=== PATIENT | female | born 1955 | race Caucasian/White ===

== ENCOUNTER → 2018-01-12 10:37 | Outpatient (CLI) | payer BC, SELFPAY ==
--- NOTE | 2018-01-12 10:41 | MRI_ITS ---
STUDY: MRI LOWER EXTREMITY RIGHT THIGH WITH AND WITHOUT CONTRAST REASON FOR EXAM: Female, 62 years old. Hematoma. Injury 2 months ago. Swelling with lump TECHNIQUE: Standardized fat and water weighted pulse sequences were obtained in all 3 orthogonal planes, post contrast administration. 18 ml of Dotarem contrast material was administered intravenously for the contrast portion of the examination. COMPARISON: None. FINDINGS: There is 8.7 x 6.7 x 2.3 cm peripherally enhancing fluid collection in the medial subcutaneous tissues corresponding to the palpable abnormality, series 5 and 11 images through . Normal quadriceps, adductor and hamstring muscles. Normal quadriceps extensor mechanism with a normal rectus femoris, vastus medialis, intermedius and lateralis muscles. Normal femur. There is no fracture. MRI/Lower Ext No Joint W/WO Cont IMPRESSION: Subcutaneous fluid collection with Shipley Eli lesion versus hematoma. Electronically Signed: Sawyer Joya MD at 22:57 EDT , Service support ,
[2018-01-12 11:51] LABS: CREATININE FINGERSTICK 0.7 mg/dL (0.55-1.02); EGFR FINGERSTICK > 60.0000 mL/min (>60)
== END ==
PROVIDERS: Family Provider Family Medicine; PCP Family Medicine; Referring Provider Surgery; Visit Provider Surgery
DX: T14.8XXA Other injury of unspecified body region, initial encounter (principal); M79.606 Pain in leg, unspecified; X58.XXXA Exposure to other specified factors, initial encounter; Y93.9 Activity, unspecified; Y92.9 Unspecified place or not applicable; Y99.9 Unspecified external cause status
CPT/HCPCS: 73720

== ENCOUNTER → 2021-08-11 | Outpatient (CLI) | payer BC, SELFPAY ==
--- NOTE | 2021-08-11 08:29 | BI_ITS ---
MAMMOGRAPHY - BILATERAL SCREENING REASON FOR EXAM: Female, 65 years old. Routine annual screening examination. PERTINENT HISTORY: Sister with breast cancer. Aunt with breast cancer. TECHNIQUE: Digital bilateral breast declan (3D mammographic acquisition) in the CC and MLO projections. 2-D mediolateral oblique (MLO) and craniocaudad (CC) views of both breasts were obtained. CAD: Full Field Digital Mammography with Computer Added Detection was performed. COMPARISON: Comparison is made with prior outside examination dated 03/12/2020. FINDINGS: Breast Composition: The breasts are almost entirely fatty. There are no dominant masses or suspicious calcifications. No other significant abnormalities are identified. There has been no significant change since the prior study. BI/SCRN MAMM (CAD)W/DECLAN BILAT IMPRESSION: Stable bilateral screening mammogram. Yearly follow-up mammogram recommended. (A) ASSESSMENT CATEGORY: BIRADS Category 1: Negative. A letter regarding these results will be sent to the patient by the facility within 30 days. Approximately 10% of breast cancers are not detected by mammography. A normal mammogram should not delay biopsy of a clinically suspicious abnormality. [id number] Electronically Signed: Berny Yuan MD at 9:21 EDT ,
== END | disposition home or self-care (01) ==
LOC: OPBI 08:27
PROVIDERS: PCP Family Medicine; Referring Provider Family Medicine; Visit Provider Family Medicine
DX: Z12.31 Encounter for screening mammogram for malignant neoplasm of breast (principal); Z80.3 Family history of malignant neoplasm of breast
CPT/HCPCS: 77063; 77067

== ENCOUNTER → 2021-12-26 | Outpatient (CLI) | payer BC, SELFPAY ==
[2021-12-26 12:16] LABS: Absolute Lymphocyte Count 1.38 X10^3/uL (0.83-4.51); Absolute Neutrophil Count 2.8 X10^3/uL (2.0-7.7); Basophil# 0.03 X10^3/uL; Basophil% 0.6 % (0-1); Eosinophil# 0.19 X10^3/uL; Hematocrit 39.6 % (37-47); Hemoglobin 13.1 g/dL (12.0-15.0); Lymphocyte # 1.38 X10^3/ul (0.83-4.51); Lymphocyte % 28.8 % (19-41); Mean Corp Hgb Conc 33.1 g/dL (32-36); Mean Corpuscular Volume 90.8 fL (81-99); Mean Platelet Vol. 9.6 fl (6.2-12.0); Monocyte# 0.38 X10^3/uL; Monocyte% 7.9 % (0-10); NRBC Flagged by Analyzer 0 % (0-5); Neutrophil # 2.81 X10^3/uL (2.7-7.7); Neutrophil % 58.5 % (47-70); Platelet Count 242 K/mm3 (150-450); RBC Distribution Width CV 12.6 % (11.6-14.6); RBC Distribution Width SD 42.2 fl (35.1-43.9); Red Blood Count 4.36 M/mm3 (4.2-5.4); White Blood Count 4.8 K/mm3 (4.4-11.0)
[2021-12-26 12:52] LABS: ALB/GLOB Ratio 1.1 RATIO (0.9-2.4); AST(SGOT) 17 U/L (15-37); Alanine Aminotransfer ALT/SGPT 32 U/L (13-56); Alkaline Phosphatase 78 U/L (45-117); Anion Gap 7 (5-15); BUN 17 mg/dL (7-18); BUN/Creat Ratio 18.3 RATIO (10-20); Calcium,Total 9.9 mg/dL (8.5-10.1); Chloride 104 mmol/L (98-107); Cholesterol 157 mg/dL (200); Creatinine, Serum 0.93 mg/dL (0.55-1.02); EST Glomerular Filtration Rate 65 mL/min (>60); Est Glom Filt Rate - Afr Amer 78 mL/min (>60); Globulin 3.5 g/dL (2.2-4.2); Glucose 105 mg/dL (74-106); High Density Lipoprotein 86 mg/dL; Protein, Total 7.5 g/dL (6.4-8.2); Sodium Level 140 mmol/L (136-145); Triglycerides 144 mg/dL; Very Low Density Lipoprotein 29 mg/dL (5-40)
[2022-01-04 14:07] LABS: Age Gdln ACOG Testing 30-65 (.)
[2022-01-05 08:59] LABS: HPV APTIMA, High Risk Negative (Negative); HPV Reflexed? YES, CHARGE PATIENT
== END | disposition home or self-care (01) ==
PROVIDERS: PCP Family Medicine; Referring Provider Family Medicine; Visit Provider Family Medicine
DX: Z00.00 Encounter for general adult medical examination without abnormal findings (principal); I10 Essential (primary) hypertension; E78.5 Hyperlipidemia, unspecified; Z12.4 Encounter for screening for malignant neoplasm of cervix
CPT/HCPCS: 36415; 80053; 80061; 85025; 87624; 88175; G0145

== ENCOUNTER → 2023-01-25 | Outpatient (CLI) | payer MEDICARE, SELFPAY ==
--- NOTE | 2023-01-25 12:04 | BI_ITS ---
MAMMOGRAPHY - BILATERAL SCREENING 3-D TOMOSYNTHESIS REASON FOR EXAM: Female, 67 years old. SCREENING PERTINENT HISTORY: No significant family history. TECHNIQUE: 2-D mammograms and 3-D Tomosynthesis of the breast (s) were performed. CAD was performed. COMPARISON: 08/11/2021 FINDINGS: The breast composition is composed of scattered fibroglandular density. Scattered benign calcifications are seen. No dense spiculated masses or suspicious microcalcifications are identified. No architectural distortion is identified. There is no skin thickening or retraction. There has been no significant change since the prior study. BI/SCRN MAMM (CAD)W/DECLAN BILAT IMPRESSION: No mammographic signs of malignancy. Routine yearly mammograms recommended. ASSESSMENT CATEGORY: BIRADS Category 1: Negative. A letter regarding these results will be sent to the patient by the facility within 30 days. FOLLOW UP RECOMMENDATION: Yearly follow up mammogram recommended. (A) Approximately 10% of breast cancers are not detected by mammography. A normal mammogram should not delay biopsy of a clinically suspicious abnormality. Electronically Signed: Phong Belcher MD at 13:56 EDT ,
== END | disposition home or self-care (01) ==
LOC: OPBI 12:02
PROVIDERS: PCP Family Medicine; Visit Provider Family Medicine
DX: Z12.31 Encounter for screening mammogram for malignant neoplasm of breast (principal)
CPT/HCPCS: 77063; 77067

== ENCOUNTER → 2023-02-03 | Outpatient (CLI) | payer MEDICARE, SELFPAY ==
[2023-02-03 13:06] LABS: Absolute Lymphocyte Count 1.67 X10^3/uL (0.83-4.51); Absolute Neutrophil Count 2.1 X10^3/uL (2.0-7.7); Basophil# 0.03 X10^3/uL; Basophil% 0.7 % (0-1); Eosinophil# 0.22 X10^3/uL; Eosinophils% 5.1 % (0-5); Hematocrit 41.7 % (37-47); Hemoglobin 13.4 g/dL (12.0-15.0); Lymphocyte # 1.67 X10^3/ul (0.83-4.51); Lymphocyte % 38.7 % (19-41); Mean Corp Hgb Conc 32.1 g/dL (32-36); Mean Corpuscular Hgb 29.7 pg (27.0-32.0); Mean Corpuscular Volume 92.5 fL (81-99); Mean Platelet Vol. 9.8 fl (6.2-12.0); Monocyte# 0.32 X10^3/uL; Monocyte% 7.4 % (0-10); NRBC Flagged by Analyzer 0 % (0-5); Neutrophil # 2.07 X10^3/uL (2.7-7.7); Neutrophil % 47.9 % (47-70); Platelet Count 248 K/mm3 (150-450); RBC Distribution Width CV 12.4 % (11.6-14.6); RBC Distribution Width SD 42.3 fl (35.1-43.9); Red Blood Count 4.51 M/mm3 (4.2-5.4); White Blood Count 4.3 K/mm3 (4.4-11.0)
[2023-02-03 13:21] LABS: ALB/GLOB Ratio 1.1 RATIO (0.9-2.4); AST(SGOT) 19 U/L (15-37); Alanine Aminotransfer ALT/SGPT 30 U/L (13-56); Albumin, Serum 3.8 g/dL (3.2-5.0); Alkaline Phosphatase 85 U/L (45-117); Anion Gap 4 (5-15); BUN 19 mg/dL (7-18); BUN/Creat Ratio 20.2 RATIO (10-20); Calcium,Total 9.6 mg/dL (8.5-10.1); Chloride 104 mmol/L (98-107); Cholesterol 167 mg/dL (200); Creatinine, Serum 0.94 mg/dL (0.55-1.02); EST Glomerular Filtration Rate 63 mL/min (>60); Est Glom Filt Rate - Afr Amer 76 mL/min (>60); Globulin 3.5 g/dL (2.2-4.2); Glucose 108 mg/dL (74-106); High Density Lipoprotein 67 mg/dL; Potassium 4.6 mmol/L (3.5-5.1); Protein, Total 7.3 g/dL (6.4-8.2); Sodium Level 139 mmol/L (136-145); Triglycerides 197 mg/dL; Very Low Density Lipoprotein 39 mg/dL (5-40)
== END | disposition home or self-care (01) ==
LOC: BFHLAB 09:15
PROVIDERS: PCP Family Medicine; Visit Provider Family Medicine
DX: Z00.00 Encounter for general adult medical examination without abnormal findings (principal); I10 Essential (primary) hypertension; E78.5 Hyperlipidemia, unspecified
CPT/HCPCS: 36415; 80053; 80061; 85025

== ENCOUNTER → 2024-02-04 | Outpatient (CLI) | payer MEDICARE, SELFPAY ==
[2024-02-04 12:32] LABS: Absolute Lymphocyte Count 1.66 X10^3/uL (0.83-4.51); Absolute Neutrophil Count 2.4 X10^3/uL (2.0-7.7); Basophil# 0.04 X10^3/uL; Basophil% 0.9 % (0-1); Eosinophil# 0.26 X10^3/uL; Eosinophils% 5.6 % (0-5); Hematocrit 40.2 % (37-47); Hemoglobin 13.2 g/dL (12.0-15.0); Lymphocyte # 1.66 X10^3/ul (0.83-4.51); Lymphocyte % 35.5 % (19-41); Mean Corp Hgb Conc 32.8 g/dL (32-36); Mean Corpuscular Volume 91.4 fL (81-99); Mean Platelet Vol. 10.2 fl (6.2-12.0); Monocyte# 0.32 X10^3/uL; Monocyte% 6.8 % (0-10); NRBC Flagged by Analyzer 0 % (0-5); Neutrophil # 2.39 X10^3/uL (2.7-7.7); Platelet Count 254 K/mm3 (150-450); RBC Distribution Width CV 12.6 % (11.6-14.6); RBC Distribution Width SD 41.5 fl (35.1-43.9); White Blood Count 4.7 K/mm3 (4.4-11.0)
[2024-02-04 13:14] LABS: Vitamin D,25 Hydroxy 40.9 ng/mL
[2024-02-04 13:45] LABS: ALB/GLOB Ratio 1.3 RATIO (0.9-2.4); AST(SGOT) 17 U/L (15-37); Alanine Aminotransfer ALT/SGPT 26 U/L (13-56); Albumin, Serum 4.1 g/dL (3.2-5.0); Alkaline Phosphatase 78 U/L (45-117); Anion Gap 7 (5-15); BUN 21 mg/dL (7-18); BUN/Creat Ratio 26.8 RATIO (10-20); Calcium,Total 9.9 mg/dL (8.5-10.1); Chloride 104 mmol/L (98-107); Cholesterol 159 mg/dL (200); Creatinine, Serum 0.78 mg/dL (0.55-1.02); EST Glomerular Filtration Rate 78 mL/min (>60); Est Glom Filt Rate - Afr Amer 94 mL/min (>60); Globulin 3.1 g/dL (2.2-4.2); Glucose 92 mg/dL (74-106); High Density Lipoprotein 67 mg/dL; Potassium 4.1 mmol/L (3.5-5.1); Protein, Total 7.2 g/dL (6.4-8.2); Sodium Level 139 mmol/L (136-145); Triglycerides 116 mg/dL; Very Low Density Lipoprotein 23 mg/dL (5-40)
== END | disposition home or self-care (01) ==
LOC: BFHLAB 10:42
PROVIDERS: PCP Family Medicine; Referring Provider Family Medicine; Visit Provider Family Medicine
DX: Z00.00 Encounter for general adult medical examination without abnormal findings (principal); I10 Essential (primary) hypertension; E78.5 Hyperlipidemia, unspecified; E55.9 Vitamin D deficiency, unspecified
CPT/HCPCS: 36415; 80053; 80061; 82306; 84439; 84443; 85025

== ENCOUNTER → 2024-02-25 | Outpatient (CLI) | payer MEDICARE, SELFPAY | END | disposition home or self-care (01) | LOC: OPBI 07:11 | PROVIDERS: PCP Family Medicine; Referring Provider Family Medicine; Visit Provider Family Medicine | DX: Z12.31 Encounter for screening mammogram for malignant neoplasm of breast (principal) | CPT/HCPCS: 77063; 77067 ==

== ENCOUNTER → 2025-02-06 | Outpatient (CLI) | payer MEDICARE, SELFPAY ==
[2025-02-06 13:09] LABS: AST(SGOT) 27 U/L (<=31); Alanine Aminotransfer ALT/SGPT 29 U/L (<=34); Albumin, Serum 4.5 g/dL (3.4-4.8); Alkaline Phosphatase 90 U/L (35-104); Anion Gap 9 (5-15); BUN 17 mg/dL (4-19); BUN/Creat Ratio 20.9 RATIO (10-20); Calcium,Total 10.4 mg/dL (7.6-11.0); Carbon Dioxide 29.6 mmol/L (21.0-32.0); Chloride 102 mmol/L (98-108); Cholesterol 150 mg/dL (<=200); Globulin 2.8 g/dL (2.2-4.2); Glucose 97 mg/dL (70-99); Low Density Lipoprotein Calc. 44 mg/dL; Potassium 4.1 mmol/L (3.3-5.1); Triglycerides 118 mg/dL; Very Low Density Lipoprotein 24 mg/dL (5-40); cholesterol:hdl ratio screen 1.75
[2025-02-06 15:18] LABS: Hematocrit 41.2 % (37-47); Hemoglobin 13.4 g/dL (12.0-15.0); Immature Granulocytes Count 0.010 X10^3/uL (0.0-0.0); Mean Corp Hgb Conc 32.5 g/dL (32-36); Mean Corpuscular Volume 92.0 fL (81-99); Mean Platelet Vol. 10.0 fl (6.2-12.0); NRBC Flagged by Analyzer 0 % (0-5); Platelet Count 237 K/mm3 (150-450); RBC Distribution Width CV 13.0 % (11.6-14.6); RBC Distribution Width SD 44.2 fl (35.1-43.9); Red Blood Count 4.48 M/mm3 (4.2-5.4); White Blood Count 5.3 K/mm3 (4.4-11.0)
== END | disposition home or self-care (01) ==
LOC: MTLAB 10:59
PROVIDERS: PCP Family Medicine; Referring Provider Family Medicine; Visit Provider Family Medicine
DX: Z00.00 Encounter for general adult medical examination without abnormal findings (principal); I10 Essential (primary) hypertension; E78.5 Hyperlipidemia, unspecified
CPT/HCPCS: 36415; 80053; 80061; 85025

== ENCOUNTER → 2025-02-26 | Outpatient (CLI) | payer MEDICARE, SELFPAY ==
--- NOTE | 2025-02-26 08:43 | BI_ITS ---
EXAM: SCRN MAMM (CAD)W/DECLAN BILAT DATE: 02/26/2025 CLINICAL HISTORY: F, Age 69 y/o , SCREENING Patient's sister was diagnosed with breast cancer. TECHNIQUE: Procedure Code: [id number] Modality: MG Procedure: SCRN MAMM (CAD)W/DECLAN BILAT COMPARISON: Prior exam(s) dated 02/25/2024, 01/25/2023, and 08/11/2021. FINDINGS: TISSUE DENSITY: There are scattered areas of fibroglandular density. Bilateral Breast Mammographic Findings: No significant masses, calcifications or other abnormalities are identified. Benign-appearing round macrocalcifications and microcalcifications are seen in both breasts. BI/SCRN MAMM (CAD)W/DECLAN BILAT IMPRESSION: Benign screening mammogram. OVERALL FINAL ASSESSMENT BI-RADS 2: BENIGN RECOMMENDATION: Routine annual follow-up in 1 Year Additional Recommendation none A letter with findings and recommendations will be mailed to the patient. Reading Location: [id number]
--- OUTSIDE RECORDS SUMMARY | 2025-02-26 09:22 | XMS RPT_ITS | CCD ---
Author Organization [facility] Care Team Providers Care Tooling Manager Name Role Phone Mariaelena Bowen Primary Care Provider [phone] Kitty Kwan Unavailable Unavailable Mariaelena Bowen MD Primary Care Provider Leeroy Owusu Unavailable Unavailable Self, Referral Referring Unavailable Aquiles, Dr. Kitty Hernandez Attending Unavaila ble UNKNOWN, UNKNOWN Referring Unavailable LEEROY OWUSU Attending Unavailable Dr. Kitty Kwan Referring Unavaila LEEROY Smith Attending Unavailable LAUREEN DOBBS Attending Unavailable LEEROY OWUSU Referring Unavailable Mariaelena Bowen MD Primary Care Provider MARIAELENA BOWEN Primary Care Unavailable ML SAAVEDRA Referring UnavailML Joseph Attending UnavailMariaelena Roy Primary Care Unavailable Mariaelena Bowen Referring Unavailable Mariaelena Bowen Attending Unavailable Mariaelena Bowen Referring Unavailable Mariaelena Bowen Attending Unavailable Mariaelena Bowen Primary Care Unavailable Allergies Allergy Classification Reported Allergen(s) Allergy Type Date of Onset Reaction(s) Facility (1 source) No Alert Propensity to adverse reactions to drug 3 [facility] Medications Current Medications Medication Drug Class(es) Dates Sig (Normalized) Sig (Original) DAILY MULTIVITAMIN TAB (5 sources) Start: 04-21-2005 DAILY MULTIVITAMIN TAB Take one(1) tablet daily. 0 04/21/2005 Active Comment on above: Take one(1) tablet d aily. evening primrose oil 500 mg oral capsule (10 sources) Start: 02-19-2015 Evening Ireland Oil 500 mg cap Take by mouth. 0 02/19/2015 Active Comment on above: Take by mouth. hydroCHLOROthiazide 12.5 mg / lisinopril 20 mg oral tablet (8 sources) Thiazide Diuretic, Angiotensin Converting Enzyme Inhibitor Start: 12-13-19 20 take 1 tablet by mouth once daily in the morning lisinopril-hyd rochlorothiazi de (PRINZIDE,ZEST ORETIC) 20-12.5 mg per tablet Take 1 tablet by mouth every morning. 90 tablet 3 12/13/2019 Active Start: 01-07-2018 take 1 tablet by doug th once daily Lisinopril-Hydrochlorothiazide Active 1 TABLET PO DAILY January 07, 2018 12:00am Comment on above: Take 1 tablet by doug th every morning. lisinopril 20 mg oral tablet (2 sources) Angiotensin Converting Enzyme Inhibitor Start: 5 take 1 tablet by mouth once daily lisinopril (ZESTRIL) 20 mg tablet Take 20 mg by mouth once daily. 09/30/2024 Active multivitamin capsule (3 sources) Start: 8 take 1 capsule by mouth once daily multivitamin capsule Active 1 CAP PO DAILY January 07, 2018 1:58pm Start: 01-07-2018 take 1 capsule by mo uth once daily multivitamin capsule Active 1 CAP PO DAILY January 07, 2018 12:00am Propylene glycol (2 sources) propylene glycol (SYSTANE COMPLETE OPHTHALMIC) Use in eyes. Active rosuvastatin calcium 20 mg oral tablet (5 sources) HMG-CoA Reductase Inhibitor Start: 5 take 1 tablet by mouth once daily rosuvastatin (CRESTOR) 20 mg tablet Take 20 mg by mouth once daily. 09/02/2024 Active Start: 12-13-2019 End: 10-26-2022 take 1 tablet by mouth once daily rosuvastatin (CRESTOR) 20 mg tablet Take 1 tablet by mouth once daily. 90 tablet 3 12/13/2019 10/26/2022 Discontinued (Discontinued by another Health Care Provider) Comment on above: Take 1 tablet by doug th once daily. simvastatin 40 mg oral tablet (8 sources) HMG-CoA Reductase Inhibitor Start: 01-07-2018 simvastatin (ZOCOR) 40 mg tablet Take by mouth. 01/07/2018 Active Comment on above: Take by mouth. Completed/Discontinued Medications Medication Drug Class(es) Dates Sig (Normalized) Sig (Original) phenylephrine hydrochloride 25 mg/ml ophthalmic solution (2 sources) alpha-1 Adrenergic Agonist Start: 11-20-2024 End: 11-20-2024 PHENYLephrine 2.5 % 1 drop (AK-DILATE, ALYSHA-SYNEPHRINE) Start: 11-20-2024 End: 11-20-2024 1 drop, BOTH EYES, ONCE, 1 d ose, On Wed11/20/24 at 1430, FOR OPHTHALMIC USE ONLY PROTECT FROM LIGHT ersidunwQYNT-tiosfhva-rygwcl n 1-0.5-0.075 % drps (2 sources) prednisoLONE-mox iflox-bromfen 1-0.5-0.075 % drps Use 1 Drop in eyes twice daily. 0 Active Comment on above: Use 1 Drop in eyes t wice daily. proparacaine hydrochloride 5 mg/ml ophthalmic solution (2 sources) Local Anesthetic Star t: 11-10 End: 11-10 proparacaine 0.5 % 1 drop (ALCAINE) Start: 11-20-2024 End: 11-20-2024 1 drop, BOTH EYES, ONCE, 1 d ose, On Wed11/20/24 at 1430, FOR THE EYE tropicamide 10 mg/ml ophthalmic solution (3 sources) Anticholinergic Start: 11-20-2024 End: 11-20-2024 tropicamide 1 % 1 drop (MYDRIACYL) Start: 11-20-2024 End: 11-20-2024 1 drop, BOTH EYES, ONCE, 1 d ose, On Wed11/20/24 at 1430, FOR THE EYE Start: 12-09-2021 End: 12-09-2021 tropicamide 0.5 % 1 Drop (MY DRIACYL) Problems Active Problems Problem Classification Problem Date Documented Da te Episodic/Chronic Blindness and vision defects (7 sources) Bilateral hyperopia of eyes; Translations: [Hypermetropia, bilateral] Onset: 11-20-2024 Episodic Disorders of lipid metabolism (5 sources) Hyperlipidemia; Translations: [Hyperlipidemia, unspecified] Onset: 12-24-2015 12-24-2015 Chronic Essential hypertension (5 sources) Benign essential hypertension; Translations: [Essential (primary) hypertension] 04-20-2005 Chronic Heart valve disorders (15 sources) Aortic valve calcification; Translations: [Nonrheumatic aortic valve disorder, unspecified] Onset: 01-31-2013 01-31-2013 Chronic Neoplasms of unspecified nature or uncertain behavior (5 sources) Neoplasm of uncertain behavior of skin Onset: 06-10-2022 Episodic Nonmalignant breast conditions (5 sources) Fibrocystic disease of breast; Translations: [Diffuse cystic mastopathy of unspecified breast] Onset: 04-21-2005 04-21-2005 Chronic Other aftercare (2 sources) Encounter for removal of sutures Onset: 11-05-2022 Episodic Other eye disorders (1 source) Vitreous floaters of right eye; Translations: [Other vitreous opacities, right eye] 10-26-2022 Chronic Other eye disorders (1 source) Posterior vitreous detachment of right eye; Translations: [Vitreous degeneration, right eye] 11-20-2024 Chronic Other eye disorders (1 source) Bilateral vitreous floaters; Translations: [Other vitreous opacities, bilateral] 11-20-2024 Chronic Other eye disorders (1 source) Vitreous degeneration, right eye; Translations: [Posterior vitreous detachment of right eye] Onset: 11-20-2024 Chronic Other eye disorders (1 source) Other vitreous opacities, bilateral; Translations: [Floaters, bilateral] Onset: 11-20-2024 Chronic Other eye disorders (2 sources) H/O: R cataract extraction; Translations: [Cataract extraction status, right eye] Episodic Other eye disorders (2 sources) H/O: L cataract extraction; Translations: [Cataract extraction status, left eye] Episodic Other eye disorders (1 source) Dry eyes; Translations: [Dry eye syndrome of bilateral lacrimal glands] 11-20-2024 Episodic Other eye disorders (1 source) Dry eye syndrome of bilateral lacrimal glands; Translations: [Dry eyes, bilateral] Onset: 11-20-2024 Episodic Other injuries and conditions due to external causes (3 sources) Hematoma; Translations: [Other injury of unspecified body region, initial encounter] 01-07-2018 Episodic Other skin disorders (4 sources) Other seborrheic keratosis Onset: 06-10-2022 Episodic Retinal detachments; defects; vascular occlusion; and retinopathy (1 source) Multiple defects of retina of left eye without detachment; Translations: [Multiple defects of retina without detachment, left eye] Episodic Past or Other Problems Problem Classification Problem Date Documented Date Episodic/Chronic Cataract (6 sources) Bilateral senile combined form cataracts of eyes; Translations: [Combined forms of age-related cataract, bilateral] Onset: 09-19-2018 Resolved: 04-26-2023 Chronic Gastritis and duodenitis (2 sources) NSAID-associated gastropathy; Translations: [Other gastritis without bleeding] Onset: 02-11-2016 Resolved: 06-23-2017 06-23-2017 Episodic Menstrual disorders (2 sources) Disorder of female genital organs; Translations: [Irregular menstruation, unspecified] Onset: 06-29-2006 Resolved: 02-20-2014 02-20-2014 Chronic Mycoses (5 sources) Onychomycosis due to dermatophyte ; Translations: [Tinea unguium] Onset: 02-19-2015 02-19-2015 Episodic Other injuries and conditions due to external causes (5 sources) Degloving injury; Translations: [Other injury of unspecified body region, initial encounter] Onset: 02-09-2019 02-09-2019 Episodic Other nervous system disorders (2 sources) Carpal tunnel syndrome; Translations: [Carpal tunnel syndrome, unspecified upper limb] Onset: 02-15-2007 Resolved: 02-20-2014 02-20-2014 Chronic Other non-traumatic joint disorders (2 sources) Shoulder joint pain; Translations: [Pain in unspecified shoulder] Onset: 05-07-2007 Resolved: 02-20-2014 02-20-2014 Episodic Other screening for suspected conditions (not mental disorders or infectious disease) (1 source) Encounter for screening mammogram for malignant neoplasm of breast; Translations: [Encounter for screening mammogram for malignant neoplasm of breast] Onset: 03-13-2024 Episodic Spondylosis; intervertebral disc disorders; other back problems (2 sources) Displacement of lumbar intervertebral disc without myelopathy; Translations: [Other intervertebral disc displacement, lumbar region] Onset: 02-06-2011 Resolved: 02-20-2014 02-20-2014 Chronic Spondylosis; intervertebral disc disorders; other back problems (2 sources) Lumbar disc prolapse with radiculopathy; Translations: [Intervertebral disc disorders with radiculopathy, lumbar region] Onset: 01-14-2011 Resolved: 02-20-2014 02-20-2014 Episodic Results Test Name Value Interpretation Reference Range Facility CBC W/Diff, Automatedon 01-11 Absolute Lymph 1.39 X10 3/uL Normal 0.83-4.51 [facility] Comment on above: Performed By: #### L 500.4050, L100.0100, L500.4100 #### [facility] [address] [place], [address] Absolute Neut 3.3 X10 3/uL Normal 2.0-7.7 [facility] Comment on above: Performed By: #### L 500.4050, L100.0100, L500.4100 #### [facility] [address] [place], [address] Basophils/100 WBC (Bld) 0.8 % Normal 0-1 [facility] Comment on above: Performed By: #### L 500.4050, L100.0100, L500.4100 #### [facility] [address] [place], [address] Eosinophils/100 WBC (Bld) 4.2 % Normal 0-5 [facility] Comment on above: Performed By: #### L 500.4050, L100.0100, L500.4100 #### [facility] [address] [place], [address] Erythrocyte distribution width (RBC) [Ratio] 13.0 % Normal 11.6-14.6 [facility] Comment on above: Performed By: #### L 500.4050, L100.0100, L500.4100 #### [facility] [address] [place], [address] Hematocrit (Bld) [Volume fraction] 41.2 % Normal 37-47 [facility] Comment on above: Performed By: #### L 500.4050, L100.0100, L500.4100 #### [facility] [address] [place], [address] Hemoglobin (Bld) [Mass/Vol] 13.4 g/dL Normal 12.0-15.0 [facility] Comment on above: Performed By: #### L 500.4050, L100.0100, L500.4100 #### [facility] [address] [place], [address] IG% 0.200 Normal 0.0-0.9 [facility] Comment on above: Result Comment: IG% - Immature Granulocytes (promyelocytes, myelocytes and metamyelocytes) > 1% indicates that a LEFT SHIFT is Present. Performed By: #### L 500.4050, L100.0100, L500.4100 #### [facility] [address] [place], [address] Lymphocytes/100 WBC (Bld) 26.3 % Normal 19-41 [facility] Comment on above: Performed By: #### L 500.4050, L100.0100, L500.4100 #### [facility] [address] [place], [address] MCH (RBC) [Entitic mass] 29.9 pg Normal 27.0-32.0 [facility] Comment on above: Performed By: #### L 500.4050, L100.0100, L500.4100 #### [facility] [address] [place], [address] MCHC (RBC) [Mass/Vol] 32.5 g/dL Normal 32-36 [facility] Comment on above: Performed By: #### L 500.4050, L100.0100, L500.4100 #### [facility] [address] [place], [address] MCV (RBC) [Entitic vol] 92.0 fL Normal 81-99 [facility] Comment on above: Performed By: #### L 500.4050, L100.0100, L500.4100 #### [facility] [address] [place], [address] Monocytes/100 WBC (Bld) 7.0 % Normal 0-10 [facility] Comment on above: Performed By: #### L 500.4050, L100.0100, L500.4100 #### [facility] [address] [place], [address] Neutrophils/100 WBC (Bld) 61.5 % Normal 47-70 [facility] Comment on above: Performed By: #### L 500.4050, L100.0100, L500.4100 #### [facility] [address] [place], [address] Nucleated RBC (Bld) [#/Vol] 0 10*3/uL Normal 0-5 [facility] Comment on above: Performed By: #### L 500.4050, L100.0100, L500.4100 #### [facility] [address] [place], [address] Platelet mean volume (Bld) [Entitic vol] 10.0 fL Normal 6.2-12.0 [facility] Comment on above: Performed By: #### L 500.4050, L100.0100, L500.4100 #### [facility] [address] [place], [address] Platelets (Bld) [#/Vol] 237 10*3/uL Normal 150-450 [facility] Comment on above: Performed By: #### L 500.4050, L100.0100, L500.4100 #### [facility] [address] [place], [address] RBC (Bld) [#/Vol] 4.48 10*6/uL Normal 4.2-5.4 [facility] Comment on above: Performed By: #### L 500.4050, L100.0100, L500.4100 #### [facility] [address] [place], [address] RDW SD 44.2 fl High 35.1-43.9 [facility] Comment on above: Performed By: #### L 500.4050, L100.0100, L500.4100 #### [facility] [address] [place], [address] WBC (Bld) [#/Vol] 5.3 10*3/uL Normal 4.4-11.0 [facility] Comment on above: Performed By: #### L 500.4050, L100.0100, L500.4100 #### [facility] [address] [place], [address] Comprehensive Metabolic Prof ilon 02-06-2025 Albumin [Mass/Vol] 4.5 g/dL Normal 3.4-4.8 [facility] Comment on above: Performed By: #### L 500.4050, L100.0100, L500.4100 #### [facility] [address] [place], [address] Albumin/Globulin [Mass ratio] 1.6 {ratio} Normal 0.9-2.4 [facility] Comment on above: Performed By: #### L 500.4050, L100.0100, L500.4100 #### [facility] [address] [place], [address] ALK PHOS 90 U/L Normal 35-104 [facility] Comment on above: Performed By: #### L 500.4050, L100.0100, L500.4100 #### [facility] [address] [place], [address] ALT [Catalytic activity/Vol] 29 U/L Normal <=34 [facility] Comment on above: Performed By: #### L 500.4050, L100.0100, L500.4100 #### [facility] [address] [place], [address] AST [Catalytic activity/Vol] 27 U/L Normal <=31 [facility] Comment on above: Performed By: #### L 500.4050, L100.0100, L500.4100 #### [facility] [address] [place], [address] Bilirubin [Mass/Vol] 0.50 mg/dL Normal 0.00-1.30 [facility] Comment on above: Performed By: #### L 500.4050, L100.0100, L500.4100 #### [facility] [address] [place], [address] BUN/CRE 20.9 RATIO High 10-20 [facility] Comment on above: Performed By: #### L 500.4050, L100.0100, L500.4100 #### [facility] [address] [place], [address] Calcium [Mass/Vol] 10.4 mg/dL Normal 7.6-11.0 [facility] Comment on above: Performed By: #### L 500.4050, L100.0100, L500.4100 #### [facility] [address] [place], [address] Chloride [Moles/Vol] 102 mmol/L Normal 98-108 [facility] Comment on above: Performed By: #### L 500.4050, L100.0100, L500.4100 #### [facility] [address] [place], [address] CO2 [Moles/Vol] 29.6 mmol/L Normal 21.0-32.0 [facility] Comment on above: Performed By: #### L 500.4050, L100.0100, L500.4100 #### [facility] [address] [place], [address] Creatinine [Mass/Vol] 0.79 mg/dL Normal 0.70-1.20 [facility] Comment on above: Performed By: #### L 500.4050, L100.0100, L500.4100 #### [facility] [address] [place], [address] GAP 9 Normal 5-15 [facility] Comment on above: Performed By: #### L 500.4050, L100.0100, L500.4100 #### [facility] [address] [place], [address] GFR/1.73 sq M.predicted among non-blacks MDRD (S/P/Bld) [Vol rate/Area] 81 mL/min/{1.73_m2} Normal >60 [facility] Comment on above: Result Comment: mL/m in/1.73m2 CKD-EPI Creatinine Equation (2020) Performed By: #### L 500.4050, L100.0100, L500.4100 #### [facility] [address] [place], [address] Globulin (S) [Mass/Vol] 2.8 g/dL Normal 2.2-4.2 [facility] Comment on above: Performed By: #### L 500.4050, L100.0100, L500.4100 #### [facility] [address] [place], [address] Glucose [Mass/Vol] 97 mg/dL Normal 70-99 [facility] Comment on above: Performed By: #### L 500.4050, L100.0100, L500.4100 #### [facility] [address] [place], [address] Potassium [Moles/Vol] 4.1 mmol/L Normal 3.3-5.1 [facility] Comment on above: Performed By: #### L 500.4050, L100.0100, L500.4100 #### [facility] [address] [place], [address] Sodium [Moles/Vol] 141 mmol/L Normal 133-145 [facility] Comment on above: Performed By: #### L 500.4050, L100.0100, L500.4100 #### [facility] [address] [place], [address] T PROT 7.3 g/dL Normal 5.9-8.4 [facility] Comment on above: Performed By: #### L 500.4050, L100.0100, L500.4100 #### [facility] [address] [place], [address] Urea nitrogen [Mass/Vol] 17 mg/dL Normal 4-19 [facility] Comment on above: Performed By: #### L 500.4050, L100.0100, L500.4100 #### [facility] [address] [place], [address] Lipid Profileon 02-06-2025 CHOL:HDL 1.75 Normal [facility] Comment on above: Performed By: #### L 500.4050, L100.0100, L500.4100 #### [facility] [address] [place], [address] Cholesterol [Mass/Vol] 150 mg/dL Normal <=200 [facility] Comment on above: Result Comment: Chol esterol level, Desirable <200 mg/dL Borderline high cholesterol 200-239 mg/dL High cholesterol >=240 mg/dL Recommendations of the NCEP Adult Treatment Panel for the following risk-cutoff thresholds for the [place] population. Performed By: #### L 500.4050, L100.0100, L500.4100 #### [facility] [address] [place], [address] Cholesterol in HDL [Mass/Vol] 86 mg/dL Normal [facility] Comment on above: Result Comment: Janet onal Cholesterol Education Program (NCEP) guidelines: <40 mg/dL: Low HDL-cholesterol (major risk factor for CHD) >= 60 mg/dL: High HDL-cholesterol (negative risk factor for CHD) HDL-cholesterol is affected by a number of factors, e.g. smoking, exercise, hormones, sex and age. Performed By: #### L 500.4050, L100.0100, L500.4100 #### [facility] [address] [place], [address] Cholesterol in LDL [Mass/Vol] 44 mg/dL Normal [facility] Comment on above: Result Comment: Bord zxjcyk=235-075 mg/dL Higher Knlw=637 mg/dL or greater Mello Equation 2020 for LDL-C Performed By: #### L 500.4050, L100.0100, L500.4100 #### [facility] [address] [place], [address] Cholesterol in VLDL [Mass/Vol] 24 mg/dL Normal 5-40 [facility] Comment on above: Performed By: #### L 500.4050, L100.0100, L500.4100 #### [facility] [address] [place], [address] Triglyceride [Mass/Vol] 118 mg/dL Normal [facility] Comment on above: Result Comment: The drugs N-Acetylcysteine and Metamizole may falsely depress this assay. Normal range: <150 mg/dL Borderline High: 150-199 mg/dL High: 200-499 mg/dL Very High: >500 mg/dL Performed By: #### L 500.4050, L100.0100, L500.4100 #### [facility] [address] [place], [address] CNPMadelyn 11-20-2024 BRIAN Telephone (OPTLOU) ---- MARLO WINN ([id number]) 1955 F Date Time Provider Department 11/20/24 ML SAAVEDRA OPTLOU During your visit today, we recorded the following information about you: Mary Schumacher 11/20/2024 3:32 PM Signed PT left before being scheduled so I scheduled her next year, same time, same provider and left a vm indicating if there is a problem she can call in to r/s. Allergies As of Date: 11/20/2024 (No Known Allergies) Date Reviewed: 11/20/2024 Reviewed by: Ml Saavedra, OD - Fully Assessed Reason for Visit: Appointment [[id number]] Prescriptions as of 11/20/2024 - lisinopril (ZESTRIL) 20 mg tablet Take 20 mg by mouth once daily. - rosuvastatin (CRESTOR) 20 mg tablet Take 20 mg by mouth once daily. - propylene glycol (SYSTANE COMPLETE OPHTHALMIC) Use in eyes. - simvastatin (ZOCOR) 40 mg tablet Take by mouth. - lisinopril-hydrochl orothiazide (PRINZIDE,ZESTORETI C) 20-12.5 mg per tablet Take 1 tablet by mouth every morning. - Evening Ireland Oil 500 mg cap Take by mouth. - DAILY MULTIVITAMIN TAB Take one(1) tablet daily. Problem List As Of Date 11/20/2024 Noted Resolved BENIGN HYPERTENSION [I10] DIFFUS CYSTIC MASTOPATHY [N60.19] 04/21/2005 Unspecified disorder of menstruation and other *06/29/2006 02/20/2014 Carpal tunnel syndrome [G56.00] 02/15/2007 02/20/2014 PAIN JOINT, SHOULDER [M25.519] 05/07/2007 02/20/2014 Lumbar disc disease with radiculopathy [M51.16] 01/14/2011 02/20/2014 Displacement of lumbar intervertebral disc with*02/06/2011 02/20/2014 Aortic valve calcification [I35.9] 01/31/2013 Mild mitral regurgitation by prior echocardiogr*2013 Tinea of nail [B35.1] 02/19/2015 Hyperlipidemia LDL goal <100 [E78.5] 12/24/2015 NSAID induced gastritis [K29.60, T39.395A] 02/11/2016 06/23/2017 Combined form of senile cataract of both eyes [*09/19/2018 04/26/2023 Shipley Eli lesion [T14.8XXA] 02/09/2019 Aortic ejection murmur [I35.1] 02/09/2019 Encounter Status:Closed by MARY SCHUMACHER on 11/20/24 Normal [facility] VISUAL FIELD 30-2 OU (BOTH E YES)on 11-20-2024 [facility] Radiology Study observation (narrative) She [facility] SCRN MAMM (CAD)W/DECLAN BILATo n 02-25-2024 SCRN MAMM (CAD)W/DECLAN BILAT [facility] Imaging Services [address] [place] [address] [id number] SCRN MAMM (CAD)W/DECLAN BILAT MR#: [id number] Acct: [id number] Name: MARLO WINN Rep #: [id number] : 1955 F 68 From: Berny [place] MD PCP: Dr. Mariaelena Bowen MD Status: [facility] Study: SCRN MAMM (CAD)W/DECLAN BILAT Date of Exam: 02/10 09/02 Exam# [id number] Ordering Dr: Mariaelena Bowen MD -[id number] MAMMOGRAPHY - BILATERAL SCREENING REASON FOR EXAM: Female, 68 years old. Routine annual screening examination. PERTINENT HISTORY: Sister with breast cancer. Aunt with breast cancer. TECHNIQUE: Digital bilateral breast declan (3D mammographic acquisition) in the CC and MLO projections. 2-D mediolateral oblique (MLO) and craniocaudad (CC) views of both breasts were obtained. CAD: Full Field Digital Mammography with Computer Added Detection was performed. COMPARISON: Comparison is made with prior study January 25, 2023 and August 11, 2021. FINDINGS: Breast Composition: There are scattered areas of fibroglandular density. There are no dominant masses or suspicious calcifications. No other significant abnormalities are identified. There has been no significant change since the prior study. BI/SCRN MAMM (CAD)W/DECLAN BILAT IMPRESSION: Stable bilateral screening mammogram. Yearly follow-up mammogram recommended. (A) ASSESSMENT CATEGORY: BIRADS Category 1: Negative. A letter regarding these results will be sent to the patient by the facility within 30 days. Approximately 10% of breast cancers are not detected by mammography. A normal mammogram should not delay biopsy of a clinically suspicious abnormality. [id number] Electronically Signed: Berny Yaun MD at 8:15 EST , CC: Dr. Mariaelena Bowen MD General Magistrate: Signed Normal [facility] Absolute lymphocyte countOrd ered By: Mariaelena Bowen on 02-03-2023 Lymphocytes Auto (Unsp spec) [#/Vol] 1.67 10*3/uL 0.83-4.51 [facility] Basophil percentageOrdered B y: Mariaelena Bowen on 02-03-2023 Basophils/100 WBC (Bld) 0.7 % 0-1 [facility] Bilirubin [Mass/Vol] 0.40 mg/dL 0.20-1.00 [facility] Comment on above: For patients on eltr ombopag therapy, use of Dimension [place] TBIL is not recommended. Chloride [Moles/Vol] 104 mmol/L 98-107 [facility] Cholesterol [Mass/Vol] 167 mg/dL <200 [facility] Comment on above: <200 mg/dL Desirable 200-240 mg/dL Borderline >240 mg/dL High Risk Eosinophils/100 WBC (Bld) 5.1 % 0-5 [facility] Glucose [Mass/Vol] 108 mg/dL 74-106 [facility] Comment on above: Fasting Glucose resu lt from 100 to 125 mg/dL suggests IMPAIRED HOMEOSTASIS per A.D.A. criteria. Neutrophils (Bld) [#/Vol] 2.1 10*3/uL 2.0-7.7 [facility] Neutrophils/100 WBC (Bld) 47.9 % 47-70 [facility] Potassium [Moles/Vol] 4.6 mmol/L 3.5-5.1 [facility] Protein [Mass/Vol] 7.3 g/dL 6.4-8.2 [facility] Sodium [Moles/Vol] 139 mmol/L 136-145 [facility] Triglyceride [Mass/Vol] 197 mg/dL <199 [facility] Comment on above: The drugs N-Acetylcy steine and Metamizole may falsely depress this assay.Serum Triglycerides Reference Interval Normal <150 mg/dL Borderline high 150 - 199 mg/dL High 200 - 499 mg/dL Very High > or = 500 mg/dL WBC (Bld) [#/Vol] 4.3 10*3/uL 4.4-11.0 [facility] Blood erythrocytes count (nu mber/volume)Ordered By: Mariaelena Bowen on 02-03-2023 RBC (Bld) [#/Vol] 4.51 10*6/uL 4.2-5.4 [facility] Blood hemoglobin measurement (mass/volume)Ordered By: Mariaelena Bowen on 02-03-2023 Hemoglobin (Bld) [Mass/Vol] 13.4 g/dL 12.0-15.0 [facility] Blood lymphocytes/100 leukoc ytesOrdered By: Mariaelena Bowen on 02-03-2023 Lymphocytes/100 WBC (Bld) 38.7 % 19-41 [facility] Blood monocytes/100 leukocyt esOrdered By: Mariaelena Bowen on 02-03-2023 Monocytes/100 WBC (Bld) 7.4 % 0-10 [facility] Blood platelet mean volumeOr dered By: Mariaelena Bowen on 02-03-2023 Platelet mean volume (Bld) [Entitic vol] 9.8 fL 6.2-12.0 [facility] Determination of erythrocyte mean corpuscular volume (MCV)Ordered By: Mariaelena Bowen on 02-03-2023 MCV (RBC) [Entitic vol] 92.5 fL 81-99 [facility] Hematocrit Auto (Bld) [Volum e fraction]Ordered By: Mariaelena Bowen on 02-03-2023 Hematocrit (Bld) [Volume fraction] 41.7 % 37-47 [facility] Laboratory - Chemistry and C hemistry - challengeOrdered By: [facility]-03-2023 ALP [Catalytic activity/Vol] 85 U/L 45-117 [facility] ALT [Catalytic activity/Vol] 30 U/L 13-56 [facility] CO2 [Moles/Vol] 31.0 mmol/L 21.0-32.0 [facility] Globulin (S) [Mass/Vol] 3.5 g/dL 2.2-4.2 [facility] Urea nitrogen/Creatinine [Mass ratio] 20.2 mg/mg 10-20 [facility] Laboratory - Hematology and Cell countsOrdered By: Pierson Andrés on 02-03-2023 Erythrocyte distribution width (RBC) [Entitic vol] 42.3 fL 35.1-43.9 [facility] Erythrocyte distribution width (RBC) [Ratio] 12.4 % 11.6-14.6 [facility] Immature granulocytes/100 WBC (Bld) 0.200 % 0.0-0.9 [facility] Comment on above: IG% - Immature Granu locytes (promyelocytes, myelocytes and metamyelocytes) > 1% indicates that a LEFT SHIFT is Present. MCH (RBC) [Entitic mass] 29.7 pg 27.0-32.0 [facility] Nucleated RBC/100 WBC (Bld) [Ratio] 0 % 0-5 [facility] MCHC Auto (RBC) [Mass/Vol]Or dered By: Mariaelena Bowen on 02-03-2023 MCHC (RBC) [Mass/Vol] 32.1 g/dL 32-36 [facility] No Panel InformationOrdered By: Mariaelena Bowen on 02-03-2023 Estimated GFR (MDRD) Amer 76 mL/min >60 [facility] Comment on above: GFR Calc Estimated GFR (MDRD) Non-Af Amer 63 mL/min >60 [facility] Comment on above: Non- GFR Calc Platelets bldOrdered By: Yvan Bowen on 02-03-2023 Platelets (Bld) [#/Vol] 248 10*3/uL 150-450 [facility] Serum or plasma albumin vidhya urement (mass/volume)Ordered By: Mariaelena Bowen on 02-03-2023 Albumin [Mass/Vol] 3.8 g/dL 3.2-5.0 [facility] Serum or plasma albumin/glob ulin mass ratioOrdered By: Mariaelena Bowen on 02-03-2023 Albumin/Globulin [Mass ratio] 1.1 {ratio} 0.9-2.4 [facility] Serum or plasma calcium vidhya urement (mass/volume)Ordered By: Mariaelena Bowen on 02-03-2023 Calcium [Mass/Vol] 9.6 mg/dL 8.5-10.1 [facility] Serum or plasma cholesterol in HDL measurement (mass/volume)Ordered By: Mariaelena Bowen on 02-03-2023 Cholesterol in HDL [Mass/Vol] 67 mg/dL >40 [facility] Comment on above: The drugs N-Acetylcy steine and Metamizole may falsely depress this assay. Reference Range HDL <40 mg/dL Low HDL Cholesterol HDL >or= 60 mg/dL High HDL Cholesterol Serum or plasma cholesterol in VLDL measurement (mass/volume)Ordered By: Mariaelena Bowen on 02-03-2023 Cholesterol in VLDL [Mass/Vol] 39 mg/dL 5-40 [facility] Serum or plasma creatinine m easurement (mass/volume)Ordered By: Mariaelena Bowen on 02-03-2023 Creatinine [Mass/Vol] 0.94 mg/dL 0.55-1.02 [facility] Comment on above: The validity of the calculated GFR & GFRAA in patients over 70 years has not been determined. Clinical correlation is essential. Serum or plasma low density lipoprotein (LDL) cholesterol measurement (mass/volume)Ordered By: Mariaelenacira Bowen on 02-03-2023 Cholesterol in LDL [Mass/Vol] 61 mg/dL 0-130 [facility] Serum or plasma urea nitroge n measurement (mass/volume)Ordered By: Mariaelenacira Bowen on 02-03-2023 Urea nitrogen [Mass/Vol] 19 mg/dL 7-18 [facility] Thin prep Papanicolaou smear with manual screeningOrdered By: Mariaelenacira Bowen on 02-03-2023 Thin prep Papanicolaou smear with manual screening 19 U/L 15-37 [facility] Thin prep Papanicolaou smear with manual screening 4 5-15 [facility] Dermatopathologyon 3 Dermatopathology Name MARLO WINN Pathologist: LAUREEN DOBBS MD Date of Procedure: 10/28/2022 Date Received: 10/29/2022 Date Reported 10/30/2022 Submitting Physician: LEEROY OWUSU MD, Location: [facility] Copy To/Referring/Attend ing: KITTY KWAN, Other External # FINAL DIAGNOSIS SKIN, LEFT 4TH FINGER, EXCISION: VERRUCA, SEE NOTE. Note: Microscopic examination reveals nail plate with some attached epithelium in addition to dermis with attached epithelium without nail plate. On the portion of epithelium that is attached to nail plate there are fuchsia colored inclusions within upper layer keratinocytes. The fuchsia colored inclusions are consistent with a myrmecial wart. Electronically Signed Out by LAUREEN DOBBS M.D. Electronically Signed Out By LAUREEN DOBBS MD/[facility] By the signature on this report, the individual or group listed as making the Final Interpretation/Diag nosis certifies that they have reviewed this case. Diagnostic interpretation performed at [facility] [address] [facility], [place] [address] Clinical History: Verruca vs. SCC. Excision. ([place] office) Specimens Submitted As: A: SKIN, LEFT 4TH FINGER Gross Description: Received in formalin are two segovia pieces of skin measuring 4 x 4 x 1 mm in aggregate. Inked and embedded in toto. z/10/30/2022 [facility] Dermatopathology [facility] [place] [id number] [facility] [address] Normal [facility] Comment on above: Performed By: #### D #### Dermatopathology Absolute lymphocyte counton 12-26-2021 Lymphocytes Auto (Unsp spec) [#/Vol] 1.38 10*3/uL 0.83-4.51 [facility] Work Phone: Basophil percentageon 2021 Basophils/100 WBC (Bld) 0.6 % 0-1 [facility] Work Phone: Bilirubin [Mass/Vol] 0.50 mg/dL 0.20-1.00 [facility] Work Phone: Comment on above: For patients on eltr ombopag therapy, use of Dimension [place] TBIL is not recommended. Chloride [Moles/Vol] 104 mmol/L 98-107 [facility] Work Phone: Cholesterol [Mass/Vol] 157 mg/dL <200 [facility] Work Phone: Comment on above: <200 mg/dL Desirable 200-240 mg/dL Borderline >240 mg/dL High Risk Eosinophils/100 WBC (Bld) 4.0 % 0-5 [facility] Work Phone: Glucose [Mass/Vol] 105 mg/dL 74-106 [facility] Work Phone: Comment on above: Fasting Glucose resu lt from 100 to 125 mg/dL suggests IMPAIRED HOMEOSTASIS per A.D.A. criteria. Neutrophils (Bld) [#/Vol] 2.8 10*3/uL 2.0-7.7 [facility] Work Phone: Neutrophils/100 WBC (Bld) 58.5 % 47-70 [facility] Work Phone: Potassium [Moles/Vol] 4.0 mmol/L 3.5-5.1 [facility] Work Phone: Protein [Mass/Vol] 7.5 g/dL 6.4-8.2 [facility] Work Phone: Sodium [Moles/Vol] 140 mmol/L 136-145 [facility] Work Phone: Triglyceride [Mass/Vol] 144 mg/dL <199 [facility] Work Phone: Comment on above: The drugs N-Acetylcy steine and Metamizole may falsely depress this assay.Serum Triglycerides Reference Interval Normal <150 mg/dL Borderline high 150 - 199 mg/dL High 200 - 499 mg/dL Very High > or = 500 mg/dL WBC (Bld) [#/Vol] 4.8 10*3/uL 4.4-11.0 [facility] Work Phone: Blood erythrocytes count (nu mber/volume)on 12-26-2021 RBC (Bld) [#/Vol] 4.36 10*6/uL 4.2-5.4 [facility] Work Phone: Blood hemoglobin measurement (mass/volume)on 12-26-2021 Hemoglobin (Bld) [Mass/Vol] 13.1 g/dL 12.0-15.0 [facility] Work Phone: Blood lymphocytes/100 leukoc yteson 12-26-2021 Lymphocytes/100 WBC (Bld) 28.8 % 19-41 [facility] Work Phone: Blood monocytes/100 leukocyt eson 12-26-2021 Monocytes/100 WBC (Bld) 7.9 % 0-10 [facility] Work Phone: Blood platelet mean volumeon 12-26-2021 Platelet mean volume (Bld) [Entitic vol] 9.6 fL 6.2-12.0 [facility] Work Phone: Determination of erythrocyte mean corpuscular volume (MCV)on 12-26-2021 MCV (RBC) [Entitic vol] 90.8 fL 81-99 [facility] Work Phone: Hematocrit Auto (Bld) [Volum e fraction]on 12-26-2021 Hematocrit (Bld) [Volume fraction] 39.6 % 37-47 [facility] Work Phone: Laboratory - Chemistry and C hemistry - challengeon 12-26-2021 ALP [Catalytic activity/Vol] 78 U/L 45-117 [facility] Work Phone: ALT [Catalytic activity/Vol] 32 U/L 13-56 [facility] Work Phone: CO2 [Moles/Vol] 29.0 mmol/L 21.0-32.0 [facility] Work Phone: Globulin (S) [Mass/Vol] 3.5 g/dL 2.2-4.2 [facility] Work Phone: Urea nitrogen/Creatinine [Mass ratio] 18.3 mg/mg 10-20 [facility] Work Phone: Laboratory - Hematology and Cell countson 12-26-2021 Erythrocyte distribution width (RBC) [Entitic vol] 42.2 fL 35.1-43.9 [facility] Work Phone: Erythrocyte distribution width (RBC) [Ratio] 12.6 % 11.6-14.6 [facility] Work Phone: Immature granulocytes/100 WBC (Bld) 0.200 % 0.0-0.9 [facility] Work Phone: Comment on above: IG% - Immature Granu locytes (promyelocytes, myelocytes and metamyelocytes) > 1% indicates that a LEFT SHIFT is Present. MCH (RBC) [Entitic mass] 30.0 pg 27.0-32.0 [facility] Work Phone: Nucleated RBC/100 WBC (Bld) [Ratio] 0 % 0-5 [facility] Work Phone: MCHC Auto (RBC) [Mass/Vol]on 12-26-2021 MCHC (RBC) [Mass/Vol] 33.1 g/dL 32-36 [facility] Work Phone: No Panel Informationon 12-26 Estimated GFR (MDRD) Amer 78 mL/min >60 [facility] Work Phone: Comment on above: GFR Calc Estimated GFR (MDRD) Non-Af Amer 65 mL/min >60 [facility] Work Phone: Comment on above: Non- GFR Calc Platelets bldon 12-26-2021 Platelets (Bld) [#/Vol] 242 10*3/uL 150-450 [facility] Work Phone: Serum or plasma albumin vidhya urement (mass/volume)on 12-26-2021 Albumin [Mass/Vol] 4.0 g/dL 3.2-5.0 [facility] Work Phone: Serum or plasma albumin/glob ulin mass ratioon 12-26-2021 Albumin/Globulin [Mass ratio] 1.1 {ratio} 0.9-2.4 [facility] Work Phone: Serum or plasma calcium vidhya urement (mass/volume)on 12-26-2021 Calcium [Mass/Vol] 9.9 mg/dL 8.5-10.1 [facility] Work Phone: Serum or plasma cholesterol in HDL measurement (mass/volume)on 12-26-2021 Cholesterol in HDL [Mass/Vol] 86 mg/dL >40 [facility] Work Phone: Comment on above: The drugs N-Acetylcy steine and Metamizole may falsely depress this assay. Reference Range HDL <40 mg/dL Low HDL Cholesterol HDL >or= 60 mg/dL High HDL Cholesterol Serum or plasma cholesterol in VLDL measurement (mass/volume)on 12-26-2021 Cholesterol in VLDL [Mass/Vol] 29 mg/dL 5-40 [facility] Work Phone: Serum or plasma creatinine m easurement (mass/volume)on 12-26-2021 Creatinine [Mass/Vol] 0.93 mg/dL 0.55-1.02 [facility] Work Phone: Comment on above: The validity of the calculated GFR & GFRAA in patients over 70 years has not been determined. Clinical correlation is essential. Serum or plasma low density lipoprotein (LDL) cholesterol measurement (mass/volume)on 12-26-2021 Cholesterol in LDL [Mass/Vol] 42 mg/dL 0-130 [facility] Work Phone: Serum or plasma urea nitroge n measurement (mass/volume)on 12-26-2021 Urea nitrogen [Mass/Vol] 17 mg/dL 7-18 [facility] Work Phone: Thin prep Papanicolaou smear with manual screeningon 12-26-2021 Thin prep Papanicolaou smear with manual screening 17 U/L 15-37 [facility] Work Phone: Thin prep Papanicolaou smear with manual screening 7 5-15 [facility] Work Phone: OCT MACULA CIRRUS OU (BOTH E YES) [facility] Vital Signs Date Time Vital Sign Value Performing Clinician Jailene johnson 1955 01:00-0400 >na< Kitty Kwan Dept. of Dermato logy Encounters Encounter Date Encounter Type Care Provider Facility Start: 02-13-2025 Encounter for genera l adult medical examination without abnormal findings Mariaelena Bowen [facility] Start: 02-06-2025 End: 02-06-2025 ambulatory [facility] Facility:[facility] Start: 11-20-2024 End: 11-20-2024 Telephone encounter Ml Saavedra OD Work Phone: Optometry Comment on above: Appointment Start: 11-20-2024 End: 11-20-2024 Patient encounter procedure Ml Saavedra OD Work Phone: Optometry Comment on above: Transient vision dis turbance of both eyes (Primary Dx); Dry eyes, bilateral; Posterior vitreous detachment of right eye; Floaters, bilateral Start: 11-20-2024 End: 11-20-2024 ambulatory MARIAELENA BOWEN Facility:[facility] Start: 02-25-2024 End: 02-25-2024 ambulatory [facility] Facility:[facility] Start: 02-03-2023 End: 02-03-2023 ambulatory [facility] Work Phone: Start: 02-03-2023 End: 02-03-2023 Patient encounter procedure [facility]Laboratory, [facility] Start: 01-25-2023 End: 01-25-2023 Patient encounter procedure [facility] Work Phone: Start: 11-05-2022 ambulatory UNKNOWN UNKNOWN Facilit [id number] Start: 11-05-2022 Office outpatient vi sit 15 minutes Leeroy Owusu Dept. of Dermatology Start: 11-05-2022 Postop follow up vis it related to original px Leeroy Owusu Dept. of Dermatology Start: 10-28-[address] Kitty Kwan Facility:[id number] Start: 10-28-2022 ambulatory LAUREEN DOBBS Facility:[id number] Start: 10-28-2022 Office outpatient vi sit 15 minutes Leeroy Owusu Dept. of Dermatology Start: 10-26-2022 End: 10-26-2022 Patient encounter procedure Ml Saavedra OD Work Phone: Optometry Comment on above: S/P cataract extract ion and insertion of intraocular lens, right (Primary Dx); Status post cataract extraction and insertion of intraocular lens of left eye; Floater, vitreous, right; Myopia, right; Regular astigmatism, bilateral Start: 09-14-2022 End: 09-14-2022 Patient encounter procedure Ml Saavedra OD Work Phone: Optometry Comment on above: S/P cataract extract ion and insertion of intraocular lens, right (Primary Dx); Status post cataract extraction and insertion of intraocular lens of left eye Start: 06-11-2022 ambulatory Referral Self Facility: [id number] Start: 06-10-2022 End: 06-11-2022 Office outpatient new 30 minutes Kitty Kwan Dept. of Dermatology Start: 06-10-2022 End: 06-11-2022 Office outpatient visit 15 minutes Kitty Kwan Dept. of Dermatology Start: 12-26-2021 End: 12-26-2021 ambulatory [facility] Work Phone: Start: 12-26-2021 End: 12-26-2021 Patient encounter procedure [facility] Start: 12-09-2021 End: 12-09-2021 Patient encounter procedure Abhay Saavedra OD Work Phone: Optometry Comment on above: Hyperopia, bilateral (Primary Dx); Regular astigmatism, bilateral; Presbyopia; Combined form of senile cataract of both eyes; Multiple defects of retina without detachment, left Start: 08-11-2021 End: 08-11-2021 Patient encounter procedure [facility] Procedures Date Procedure Procedure Detail Performing Clinician Start: 11-20-2024 Visual field xm uni/ bi w/interp extended exam Ml Saavedra OD Work Phone: Start: 01-25-2023 Screening mammography Start: 10-28-2022 Biopsy nail unit sep arate procedure Leeroy Owusu Start: 10-26-2022 Computerized ophthal josue imaging retina Ml Saavedra OD Work Phone: Start: 08-11-2021 Screening mammography Start: 03-12-2020 Mammography Abhay becerra II OD Work Phone: Start: 02-15-2020 Lipid 1996 panel - S chanelle or Plasma Ml Saavedra OD Work Phone: Start: 02-09-2019 Adult depression scr eening assessment Abhay Saavedra II OD Work Phone: Start: 02-12-2017 Colonoscopy Abhay becerra II OD Work Phone: Plan of Treatment Date Care Activity Detail Author Start: 10-07-2031 RSV Vaccine (1 - 1-d ose 75+ series) RSV Vaccine (1 - 1-dose 75+ series) [facility] Start: 02-12-2027 Colonoscopy COLONOSCOPY [facility] Start: 02-12-2027 COLORECTAL CANCER SCREENING COLORECTAL CANCER SCREENING [facility] Start: 02-12-2027 Screening for malign ant neoplasm of colon [facility] Start: 02-10-2026 Urine microalbumin profile [facility] Start: 11-26-2025 End: 11-26-2025 Patient encounter procedure 11/26/2025 1:30 PM EDT Office Visit [facility] [address] [place] [address] Ml Saavedra, OD [address] [place] [address] Diagnostics[facility] [address] [address] One year follow up for floaters Optometry Comment on above: One year follow up f or floaters Start: 02-14-2025 Lipid panel Lipid Screening [facility] Start: 02-14-2025 LIPID SCREEN LIPID SCREEN [facility] Start: 12-11-2024 Influenza vaccination Influenza Vacc ine (#1) [facility] Start: 04-12-2024 Advance Directive Discussion Advance Directive Discussion [facility] Start: 04-12-2024 Medicare Advantage Annual Wellness Visit Medicare Advantage Annual Wellness Visit [facility] Start: 02-14-2023 DIABETES SCREEN DIABETES SCREEN [facility] Start: 02-14-2023 Diabetes Screening Diabetes Screenin g [facility] Start: 12-11-2022 Influenza vaccination INFLUENZA (#1) [facility] Start: 06-08-2022 COVID-19 VACCINE (5 - Pfizer series) COVID-19 VACCINE (5 - Pfizer series) [facility] Start: 04-12-2022 ADVANCE DIRECTIVE DISCUSSION ADVANCE DIRECTIVE DISCUSSION [facility] Start: 04-12-2022 DEPRESSION ASSESSMENT DEPRESSION ASS ESSMENT [facility] Start: 12-26-2021 [facility] Work Phone: Start: 12-11-2021 Influenza vaccination INFLUENZA (#1) [facility] Start: 2021 ADVANCE DIRECTIVE DISCUSSION ADVANCE DIRECTIVE DISCUSSION [facility] Start: 2021 BONE DENSITY BONE DENSITY [facility] Start: 2021 PNEUMOCOCCAL: 65+ (1 - PCV) PNEUMOCOCCAL: 65+ (1 - PCV) [facility] Start: 2021 Screening for osteoporosis Bone Density Screening [facility] Start: 06-01-2021 COVID-19 VACCINE (4 - Booster for Pfizer series) COVID-19 VACCINE (4 - Booster for Pfizer series) [facility] Start: 03-12-2021 Mammography MAMMOGRAM [facility] Start: 03-12-2021 Screening for malign ant neoplasm of breast Mammogram Screening [facility] Start: 02-10-2020 Adult depression screening assessment DEPRESSION SCREENING [facility] Start: 02-10-2020 ANNUAL PCP TEAM BREWING DIRECTOR ROXANNA DISEASE VISIT ANNUAL PCP TEAM CHRONIC DISEASE VISIT [facility] Start: 02-10-2020 BP CONTROLLED (<130/80) BP CONTROLLE D (<130/80) [facility] Start: 03-10-2017 SHINGRIX VACCINE (2 of 3) SHINGRIX VACCINE (2 of 3) [facility] Start: 05-30-2016 FECAL OCCULT BLOOD FECAL OCCULT BLOO D [facility] Start: 05-30-2016 Screening for malign ant neoplasm of colon Fecal Occult Blood [facility] Start: 2001 COLOGUARD (FIT-DNA) COLOGUARD (FIT-D NA) [facility] Start: [address] COLONOGRAPHY [facility] Start: 2001 Screening for malign ant neoplasm of colon [facility] Start: 2001 SIGMOIDOSCOPY SIGMOIDOSCOPY [facility] Start: 1974 Anxiety Screening Anxiety Screening [facility] Start: 1974 Depression Screening Depression Scre ening [facility] Start: 1974 HEPATITIS C SCREENING C [facility] Start: 1974 Hepatitis C screening Hepatitis C Sc reening [facility] Start: 1974 HIV SCREENING HIV SCREENING [facility] Path report.final Dx Spec [facility] Immunizations Immunization Date Immunization Notes Care Provider Fa cility 01-27-2024 influenza virus vaccine, unspecified formulation Ml Saavedra OD Work Phone: [facility] 01-10-2019 influenza, seasonal, injectable Abhay Saavedra II OD Work Phone: [facility] 01-17-2018 influenza, seasonal, injectable Abhay Saavedra II OD Work Phone: [facility] 01-13-2017 zoster vaccine, live Abhay Chicken Handler permraiam II, OD Work Phone: [facility] 12-30-2016 influenza, injectable, quadrivalent, preservative free Abhay Romelrider II, OD Work Phone: [facility] 02-11-2016 influenza, injectable, quadrivalent, contains preservative Abhay Romelrider II, OD Work Phone: [facility] 02-11-2016 tetanus toxoid, reduced diphtheria toxoid, and acellular pertussis vaccine, adsorbed Abhay Romelrider II, OD Work Phone: [facility] 02-20-2014 influenza, seasonal, injectable Abhay Urenarider II, OD Work Phone: [facility] 01-31-2013 influenza virus vaccine, unspecified formulation Abhay Romelrider II, OD Work Phone: [facility] 01-14-2009 influenza virus vaccine, unspecified formulation Abhay Romelrider II, OD Work Phone: [facility] 02-29-2008 influenza virus vaccine, unspecified formulation Abhay Cooperrider II, OD Work Phone: [facility] 04-21-2005 tetanus and diphtheria toxoids, adsorbed, preservative free, for adult use (2 Lf of tetanus toxoid and 2 Lf of diphtheria toxoid) Abhay Romelrider II, OD Work Phone: [facility] [facility] 1955 pneumococcal conjugate vaccine, 7 valent [facility] Payers Date Payer Category Payer Self-pay [id number] 2023 Medicare (Managed Care) [employer] O [id number] 2023 Medicare [id number] 2021 Medicare [id number] 2021 Unknown [id number] 2003 Unknown [id number] 2003 Unknown [id number] 1955 Unknown [id number] 1955 Unknown [id number] [id number] 1955 Unknown [id number] 1955 Unknown [id number] [id number] Medicare [id number] Medicare [id number] Unknown [id number] [id number] Unknown [id number] [id number] Social History Date Type Detail Facility Start: [facility]11[facility]22 [facility] Start: 1955 End: 1955 Sex Assigned At Female [facility] Start: 12-09-2021 [facility] Start: 12-09-2021 Tobacco use and exposure Smokeless tobacco non-user [facility] Start: 12-09-2021 End: 11-20-2024 Alcohol intake Current non-drinker of alcohol (finding) [facility] Start: 1955 Sex Assigned At Not on file [facility] Start: 11-29-2021 End: 12-09-2021 Exposure to SARS-CoV-2 (event) Not sure [facility] Start: 09-14-2022 End: 04-26-2023 History of Social function [facility] Start: 09-14-2022 End: 04-26-2023 Tobacco use panel [facility] Start: 03-13-2012 Adult Depression Screening Assessment 0 [facility] Goals Date Patient Goal Desired Activity /State Functional Status Date Assessment Result Facility 05-10-2017 Are you deaf, or do you have serious difficulty hearing No 05/10/2017 12:55 PM Julio Chin III, MD No [facility] 05-10-2017 Are you blind, or do you have serious difficulty seeing, even when wearing glasses No 05/10/2017 12:55 PM Julio Chin III, MD No [facility] 05-10-2017 Do you have serious difficulty walking or climbing stairs No 05/10/2017 12:55 PM Julio Chin III, MD No [facility] 05-10-2017 Do you have difficul ty dressing or bathing No 05/10/2017 12:55 PM Julio Chin III, MD No [facility] 05-10-2017 Because of a physica l, mental, or emotional condition, do you have difficulty doing errands alone such as visiting a physician's office or shopping No 05/10/2017 12:55 PM Julio Chin III, MD No [facility] Mental Status Date Assessment Result Facility 05-10-2017 Because of a physica l, mental, or emotional condition, do you have serious difficulty concentrating, remembering, or making decisions No 05/10/2017 12:55 PM Julio Chin III, MD No [facility] Clinical Notes 02-11-2016 to 11-20-2024 Telephone Encounter - Mary Schumacher - 11/20/2024 3:30 PM EDTTelephone Encounter - Mary Schumacher - 11/20/2024 3:30 PM EDTPatient InstructionsPatient Instructions Note Date & Type Note Facility 11-20-2024 Telephone encount er Note PT left before being scheduled so I scheduled her next year, same time, same provider and left a vm indicating if there is a problem she can call in to r/s. [facility] 11-20-2024 Miscellaneous Notes Formattin g of this note might be different from the original. PT left before being scheduled so I scheduled her next year, same time, same provider and left a vm indicating if there is a problem she can call in to r/s. documented in this encounter [facility] 11-20-2024 Instructions Ml Saavedra OD - 11/20/2024 2:56 PM EDT ASSESSMENT/PLAN: 1. Transient vision disturbance of both eyes - ICD9: 368.9, ICD10: H53.9 (primary diagnosis) Discussed that this may be due to dryness and also suggested discussing with her PCP. 2. Dry eyes, bilateral - ICD9: 375.15, ICD10: H04.123 Recommended the use of artificial tears four times per day to maintain good vision and comfort. Discussed contacting the office if there is a change in comfort or vision. 3. Posterior vitreous detachment of right eye - ICD9: 379.21, ICD10: H43.811 4. Floaters, bilateral - ICD9: 379.24, ICD10: H43.393 Vitreal floaters stable both eyes. Retinas flat and intact with no apparent retinal tear or traction. Discussed symptoms of retinal tear/detachment and if seen patient will return to clinic without delay. Recommended yearly exams, sooner if she continues to have visual symptoms. documented in this encounter [facility] 11-20-2024 Note HNO ID: [id number] Author: ML SAAVEDRA OD Service: ? Author Type: COTTAGE MASTER Type: Progress Notes Filed: 11/20/2024 14:57 Note Text: ASSESSMENT/PLAN: 1. Transient vision disturbance of both eyes - ICD9: 368.9, ICD10: H53.9 (primary diagnosis) Discussed that this may be due to dryness and also suggested discussing with her PCP. 2. Dry eyes, bilateral - ICD9: 375.15, ICD10: H04.123 Recommended the use of artificial tears four times per day to maintain good vision and comfort. Discussed contacting the office if there is a change in comfort or vision. 3. Posterior vitreous detachment of right eye - ICD9: 379.21, ICD10: H43.811 4. Floaters, bilateral - ICD9: 379.24, ICD10: H43.393 Vitreal floaters stable both eyes. Retinas flat and intact with no apparent retinal tear or traction. Discussed symptoms of retinal tear/detachment and if seen patient will return to clinic without delay. Recommended yearly exams, sooner if she continues to have visual symptoms. Ml Saavedra, OD I have confirmed and edited as necessary the relevant ophthalmic history, ROS, and the neuro exam findings as obtained by others. [facility] 11-20-2024 History of Presen t illness Narrative ASSESSMENT/PLAN: 1. Transient vision disturbance of both eyes - ICD9: 368.9, ICD10: H53.9 (primary diagnosis) Discussed that this may be due to dryness and also suggested discussing with her PCP. 2. Dry eyes, bilateral - ICD9: 375.15, ICD10: H04.123 Recommended the use of artificial tears four times per day to maintain good vision and comfort. Discussed contacting the office if there is a change in comfort or vision. 3. Posterior vitreous detachment of right eye - ICD9: 379.21, ICD10: H43.811 4. Floaters, bilateral - ICD9: 379.24, ICD10: H43.393 Vitreal floaters stable both eyes. Retinas flat and intact with no apparent retinal tear or traction. Discussed symptoms of retinal tear/detachment and if seen patient will return to clinic without delay. Recommended yearly exams, sooner if she continues to have visual symptoms. Ml Saavedra, OD I have confirmed and edited as necessary the relevant ophthalmic history, ROS, and the neuro exam findings as obtained by others. documented in this encounter [facility] 11-20-2024 Note Date of Procedure 11/20/2024. Project Development Director Information Keeper Helper: clara. Reliability Right Eye Good. Left Eye Good. Interpretation Right Eye Normal. Left Eye Normal. Interval Change Right Eye Initial. Left Eye Initial. [facility] 10-26-2022 Instructions Ml Saavedra, OD - 10/26/2022 9:10 AM EDT ASSESSMENT/PLAN: 1. S/P cataract extraction and insertion of intraocular lens, right - ICD9: V45.61, V43.1, ICD10: Z98.41, Z96.1 (primary diagnosis) 2. Status post cataract extraction and insertion of intraocular lens of left eye - ICD9: V45.61, V43.1, ICD10: Z98.42, Z96.1 Healing well and happy with the results. 3. Floater, vitreous, right - ICD9: 379.24, ICD10: H43.391 Stable at this time. 4. Myopia, right - ICD9: 367.1, ICD10: H52.11 5. Regular astigmatism, bilateral - ICD9: 367.21, ICD10: H52.223 Glasses are an option if she so desires Return in 6 months for dilation documented in this encounter [facility] 10-26-2022 History of Presen t illness Narrative ASSESSMENT/PLAN: 1. S/P cataract extraction and insertion of intraocular lens, right - ICD9: V45.61, V43.1, ICD10: Z98.41, Z96.1 (primary diagnosis) 2. Status post cataract extraction and insertion of intraocular lens of left eye - ICD9: V45.61, V43.1, ICD10: Z98.42, Z96.1 Healing well and happy with the results. 3. Floater, vitreous, right - ICD9: 379.24, ICD10: H43.391 Stable at this time. 4. Myopia, right - ICD9: 367.1, ICD10: H52.11 5. Regular astigmatism, bilateral - ICD9: 367.21, ICD10: H52.223 Glasses are an option if she so desires Return in 6 months for dilation Ml Saavedra, OD I have confirmed and edited as necessary the relevant ophthalmic history, ROS, and the neuro exam findings as obtained by others. documented in this encounter [facility] 09-14-2022 Instructions Ml Saavedra, OD - 09/14/2022 9:30 AM EDT ASSESSMENT/PLAN: 1. S/P cataract extraction and insertion of intraocular lens, right - ICD9: V45.61, V43.1, ICD10: Z98.41, Z96.1 (primary diagnosis) 2. Status post cataract extraction and insertion of intraocular lens of left eye - ICD9: V45.61, V43.1, ICD10: Z98.42, Z96.1 Healing and well and Deepak is happy with the results! She is currently using her drops twice a day until the bottle for each eye is empty. Return in 6 weeks for post op and refraction, contact us sooner if any changes in the vision occur. documented in this encounter [facility] 09-14-2022 History of Presen t illness Narrative ASSESSMENT/PLAN: 1. S/P cataract extraction and insertion of intraocular lens, right - ICD9: V45.61, V43.1, ICD10: Z98.41, Z96.1 (primary diagnosis) 2. Status post cataract extraction and insertion of intraocular lens of left eye - ICD9: V45.61, V43.1, ICD10: Z98.42, Z96.1 Healing and well and Deepak is happy with the results! She is currently using her drops twice a day until the bottle for each eye is empty. Return in 6 weeks for post op and refraction, contact us sooner if any changes in the vision occur. Ml Saavedra, OD I have confirmed and edited as necessary the relevant ophthalmic history, ROS, and the neuro exam findings as obtained by others. documented in this encounter [facility] 12-09-2021 Instructions Abhay Saavedra II, OD - 12/09/2021 10:34 AM EDT Assessment and Plan H52.03 Hyperopia, bilateral (primary encounter diagnosis) H52.223 Regular astigmatism, bilateral H52.4 Presbyopia Comment: Small shift in glasses power. Update glasses as desired. H25.813 Combined form of senile cataract of both eyes Comment: Mild cataract in both eyes. Well tolerated at this time. Discussed possible future affect on daily activities to watch for. Monitor as instructed. 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 Discussed symptoms of retinal tear/detachment and if seen will return to clinic without delay. Recheck in 1 year. I have confirmed and edited as necessary the relevant ophthalmic history, ROS, and the neuro exam findings as obtained by others. I have seen and examined Marlo Winn. I have discussed the case and the management of this patient's care with the Resident/Fellow, if applicable. I also have reviewed and agree with the assessment and plan as stated above and agree with all of its relevant components. Abhay Saavedra II, OD documented in this encounter [facility] 12-09-2021 History of Presen t illness Narrative Assessment and Plan H52.03 Hyperopia, bilateral (primary encounter diagnosis) H52.223 Regular astigmatism, bilateral H52.4 Presbyopia Comment: Small shift in glasses power. Update glasses as desired. H25.813 Combined form of senile cataract of both eyes Comment: Mild cataract in both eyes. Well tolerated at this time. Discussed possible future affect on daily activities to watch for. Monitor as instructed. 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 Discussed symptoms of retinal tear/detachment and if seen will return to clinic without delay. Recheck in 1 year. I have confirmed and edited as necessary the relevant ophthalmic history, ROS, and the neuro exam findings as obtained by others. I have seen and examined Marlo Winn. I have discussed the case and the management of this patient's care with the Resident/Fellow, if applicable. I also have reviewed and agree with the assessment and plan as stated above and agree with all of its relevant components. Abhay Saavedra II, OD documented in this encounter [facility] 02-11-2016 History of Past i llness Narrative Problem Noted Date Resolved Date NSAID induced gastritis 02/11/2016 06/24/19 18 Displacement of lumbar inter vertebral disc without myelopathy 02/06/2011 02/20/2014 Lumbar disc disease with radiculopathy 1 02/20/2014 PAIN JOINT, SHOULDER 05/07/2007 02/20/2014 Carpal tunnel syndrome 02/15/2007 4 Unspecified disorder of mens truation and other abnormal bleeding from female genital tract 06/29/2006 02/20/2014 documented as of this encounter (statuses as of 12/09/2021) [facility] History of Past illness Narrative* Problem Noted Date Resolved Date NSAID induced gastritis 02/11/2016 06/24/19 18 Displacement of lumbar inter vertebral disc without myelopathy 02/06/2011 02/20/2014 Lumbar disc disease with radiculopathy 02/20/2014 PAIN JOINT, SHOULDER 05/07/2007 02/20/2014 Carpal tunnel syndrome 02/15/2007 4 Unspecified disorder of mens truation and other abnormal bleeding from female genital tract 06/29/2006 02/20/2014 documented as of this encounter (statuses as of 09/14/2022) [facility] History of Past illness Narrative* Problem Noted Date Diagnosed Date Resolved Date NSAID induced gastritis 02/11/201606/10 Displacement of lumbar inter vertebral disc without myelopathy 02/06/2011 02/20/2014 Lumbar disc disease with radiculopathy 01/14/2011 02/20/2014 PAIN JOINT, SHOULDER 05/07/2007 014 Carpal tunnel syndrome 02/15/200702/20 Unspecified disorder of mens truation and other abnormal bleeding from female genital tract 06/29/2006 02/20/2014 documented as of this encounter (statuses as of 10/26/2022) 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 noteN/ADept. of Dermatology Evaluation note* Diagnosis S/P cataract extraction and insertion of intraocular lens, right- Primary Status post cataract extraction and insertion of intraocular lens of left eye documented in this encounter [facility] note* Diagnosis S/P cataract extraction and insertion of intraocular lens, right- Primary Status post cataract extraction and insertion of intraocular lens of left eye Floater, vitreous, right Myopia, right Regular astigmatism, bilateral documented in this encounter [facility] note* Diagnosis Transient vision disturbance of both eyes- Primary Unspecified visual disturbance Dry eyes, bilateral Tear film insufficiency, unspecified Posterior vitreous detachment of right eye Vitreous degeneration Floaters, bilateral documented in this encounter [facility] for referral (narrative)* Name Reason for referral NA NA Dept. of Dermatology Chief Complaint and Reason for Visit Chief Complaint SCREENING Chief Complaint LABS AND LABSPEC Family History No Family History Records Found Relationship Condition Age at Onset Recorded Date/T cee brother Cardiac disease Unknown Hypertension Unknown mother Hypertension Unknown Malignant neoplasm Unknown sister Malignant neoplasm of breast Unknown father Malignant neoplasm Unknown Medications Administered Section Active Administered Medications - up to 3 most recent administrations Medication Order MAR Action Action Date Dose Rate Site tropicamide 0.5 % 1 Drop (MYDRIACYL) 1 Drop, BOTH EYES, DIRECTED, Starting on Wed12/09/21 at 1030, Until Wed12/09/21 at 2229, Administer for dilation Given 12/09/2021 10:30 AM EDT 1 Drop Summary Purpose Advance Directives No Advanced Directives Records FoundNo Advanced Directives Records FoundNo Advanced Directives Records Found Additional Source Comments Goals (unrecognized section and content) Goals may be documented in a n alternate sectionGoals may be documented in an alternate sectionGoals may be documented in an alternate section Source Comments (unrecognize d section and content) In the event this informatio n is protected by the Federal Confidentiality of Alcohol and Drug Abuse Patient Records regulations: The Federal rules restrict any use of the information to criminally investigate or prosecute any alcohol or drug abuse patient.[facility] the event this information is protected by the Federal Confidentiality of Alcohol and Drug Abuse Patient Records regulations: The Federal rules restrict any use of the information to criminally investigate or prosecute any alcohol or drug abuse patient.[facility] the event this information is protected by the Federal Confidentiality of Alcohol and Drug Abuse Patient Records regulations: The Federal rules restrict any use of the information to criminally investigate or prosecute any alcohol or drug abuse patient.[facility] the event this information is protected by the Federal Confidentiality of Alcohol and Drug Abuse Patient Records regulations: The Federal rules restrict any use of the information to criminally investigate or prosecute any alcohol or drug abuse patient.[facility] the event this information is protected by the Federal Confidentiality of Alcohol and Drug Abuse Patient Records regulations: The Federal rules restrict any use of the information to criminally investigate or prosecute any alcohol or drug abuse patient.[facility] Reason for Visit (unrecogniz ed section and content) Reason Comments Yearly Exam Reason Comments Post-op Cataract Right eye-08/12/2022 [place] [facility] [place] [facility] Reason Comments Post-op Cataract Right eye 08/12/2022 [facility] Reason Comments Blurred Vision Reason Comments Appointment Care Teams (unrecognized sec tion and content) Tooling Manager Relationship Specialty Start Date End Date Mariaelena Bowen [address] [place], [place] [id number] PCP - General Family Practice 12/09/21 Tooling Manager Relationship Specialty Start Date End Date Mariaelena Bowen MD [address] [place], [place] [phone] PCP - General Family Medicine 12/09/21 Tooling Manager Relationship Specialty Start Date End Date Mariaelena Bowen MD [address] [place] [phone] PCP - General Family Medicine 12/09/21 Team Status: Active Member Role Status Dates Dr. Julio Starr III, MD Family Provider Active Dr. Mariaelena Bowen MD Primary Care Provider Active Team Status: Inactive Member Role Status Dates Dr. Mariaelena Bowen MD Primary Care Provider, Tian mcgrath Provider Active Tooling Manager Relationship Specialty Start Date End Date Mariaelena Bowen MD [address] [place] [address] PCP - General Family Medicine 12/09/21 Tooling Manager Relationship Specialty Start Date End Date Mariaelena Bowen MD [address] [place], [place] [phone] PCP - General Family Medicine 12/09/21 INFORMATION SOURCE (unrecogn ized section and content) DATE CREATED AUTHOR 01/14/2023 [facility] DATE CREATED AUTHOR AUTHOR'S ORGANIZ ATION 11/21/2024 [facility] DATE CREATED AUTHOR AUTHOR'S ORGANIZ ATION 02/15/2025 [facility] FOR RECORDS PERTAINING TO PATIENTS WHO ARE OR HAVE BEEN ENROLLED IN A CHEMICAL DEPENDENCY/SUBSTANCEABUSE PROGRAM, SOME INFORMATION MAY BE OMITTED. This clinical summary was aggregated from multiple sources. Caution should be exercised in using it in the provision of clinical care. This summary normalizes information from multiple sources, and as a consequence, information in this document may materially change the coding, format and clinical context of patient data. In addition, data may be omitted in some cases. CLINICAL DECISIONS SHOULD BE BASED ON THE PRIMARY CLINICAL RECORDS. [email or web address] provides no warranty or guarantee of the accuracy or completeness of information in this document.
== END | disposition home or self-care (01) ==
PROVIDERS: PCP Family Medicine; Referring Provider Family Medicine; Visit Provider Family Medicine
DX: Z12.31 Encounter for screening mammogram for malignant neoplasm of breast (principal)
CPT/HCPCS: 77063; 77067